=== PATIENT | female | born 1990 | race Caucasian/White ===

== ENCOUNTER 2018-06-16 22:19 | Inpatient (IN) ==
--- NOTE | 2018-06-16 23:24 | ED ---
History of Present Illness Primary Care Physician: NOT REQUIRED Chief Complaint: LOF History of Present Illness: Patient is a 28-year-old at 39/2 weeks gestation presented to OB triage with complaints of loss of fluid. Patient reports that she believes she ruptured her membranes at 4 AM today. However, she went to work and had to wear a pad and adult diaper due to leakage. Denies contractions or vaginal bleeding. Endorses movement. Denies chest pain, shortness of breath, fever, chills, headaches, vision issues, or pain. Denies any complication with this thus far. GBS negative. Of note patient had OB ultrasound on 06/14/18 showing cephalic presentation, weight at 14 percentile and MADHU of 16.9 cm. Patient had contacted PCP Dr. Howell who had informed patient to come in to OB triage to get evaluated for rupture membrane earlier today. However, patient presented to OB triage appx 11 PM. Past medical history: Acid reflux Late care Allergies: None Medications: Protonix 20 mg daily Past surgical history: None Social history: Patient denies cigarette, alcohol or illicit drug use. Family history: None - Inpatient Certification I certify that the inpatient services were ordered in accordance with Medicare regulations governing the order. This includes certification that hospital inpatient services are reasonable and necessary and in the case of services not specified as inpatient-only under 42 CFR 419.22(n), that they are appropriately provided as inpatient services in accordance to with the 2-midnight benchmark under 43 CFR 412.3(e) Review of Systems All other systems reviewed negative except as stated in HPI Medications and Allergies Allergies Allergy/AdvReac Type Severity Reaction Status Date / Time No Known Allergies Allergy Verified 06/16/18 23:27 Home Medications Medication Instructions Recorded Confirmed Type pantoprazole [Protonix] 1 tab PO DAILY 06/16/18 06/16/18 History Exam Vital signs: Vital Signs 06/16/18 22:49 06/16/18 22:54 06/16/18 22:55 Temperature 99.0 F Pulse Rate 85 89 Respiratory Rate 18 Blood Pressure 119/78 Narrative: GENERAL: Well-nourished, well-developed patient. SKIN: Warm and dry. HEAD: Normocephalic and atraumatic. EYES: No scleral icterus. No injection or drainage. ENT: No nasal drainage noted. Mucous membranes pink. Airway patent. NECK: Supple, trachea midline. No JVD. CARDIOVASCULAR: Regular rate and rhythm without murmurs, gallops, or rubs. RESPIRATORY: Breath sounds equal bilaterally. No accessory muscle use. ABDOMEN/GI: Gravid abdomen soft, non-tender, bowel sounds present, no rebound, no guarding Gravid to 39/2 weeks size GENITOURINARY: External Genitalia: intact and normal in appearance Cervix: Anterior Dilatation: 2 Effacement: 70 Station: -2 Presentation: Vertex Membranes: ruptured since 4 am per pt Uterine Contractions: irregular FHT's: Category: 1 Baseline: 140 Reactive: yes Variability: mod Decels: none Acceleration: positive EXTREMITIES: No cyanosis. +2-3 lower extremity edema BACK: Nontender without obvious deformity. No CVA tenderness. NEUROLOGICAL: Awake and alert. Motor and sensory grossly within normal limits. Five out of 5 muscle strength in all muscle groups. Normal speech. Results - Labs CBC & Chem 7: 06/16/18 23:00 Assessment and Plan - Diagnosis (1) 39 weeks gestation of Code(s): Z3A.39 - 39 weeks gestation of Status: Acute (2) SROM (spontaneous rupture of membranes) Status: Acute - Plan Patient is a 28-year-old at 39/2 weeks gestation presented to OB triage with complaints of loss of fluid. SROM since 4 am. -Amnisure test positive -GBS negative -SROM appx 19 hrs at time of admission to L&D -VS WNL -continue to monitor vs -NST reassuring, heart tracing category 1 -Cervical exam: /-2/anterior -Patient with favorable cervix plan to admit to labor and delivery for induction of labor and expected delivery -Patient will be started on pit 07/22/[address] Chavez - Attending Attestation The exam, history, and the medical decision-making described in the above note were completed with the assistance of the resident physician. I reviewed and agree with the findings presented. I attest that I had a [id number] encounter with the patient on the same day, and personally performed and documented my assessment and findings in the medical record. Discharge Plan - Physicians Team Primary Care Provider: NOT REQUIRED, Attending Provider: Ulises Chavez
[2018-06-16] MEDS ORDERED: fentaNYL Citrate Inj 100 MCG/2 ML Ampul IV.PUSH PRN ×2 (23:33)
[2018-06-16] MEDS ORDERED: Sodium Chlor 0.9% Inj 500 ML IV.SIG PRN (23:33)
[2018-06-16] MEDS ORDERED: Sod Chloride 0.9% Inj 1,000 ML IV.CONT PRN (23:33)
[2018-06-16] MEDS ORDERED: Naloxone Inj 0.4 MG/ML Vial IV.PUSH PRN (23:33)
[2018-06-16] MEDS ORDERED: Oxytocin 30 Units/500ml Premix 30 UNITS/500 ML BAG IV.SIG ONE (23:33)
[2018-06-16] MEDS ORDERED: Oxytocin 30 Units/500ml Premix 30 UNITS/500 ML BAG IV.SIG PRN (23:34)
[2018-06-16 23:39] LABS: Baso # (Auto) 0.1 th/mm3 (0.0-0.2); Baso % (Auto) 0.4 % (0.0-2.0); Eos # (Auto) 0.1 th/mm3 (0.0-0.4); Eos % (Auto) 0.6 % (0.0-4.0); Hematocrit 34.2 % (35.0-46.0); Hemoglobin 11.3 gm/dL (11.6-15.3); Lymph # (Auto) 2.3 th/mm3 (1.0-4.8); Lymph % (Auto) 13.8 % (9.0-44.0); Mean Corpuscular HGB Conc 32.9 % (32.0-36.0); Mean Corpuscular Hemoglobin 28.8 pg (27.0-34.0); Mean Corpuscular Volume 87.4 fL (80.0-100.0); Mean Platelet Volume 8.7 fL (7.0-11.0); Mono # (Auto) 1.3 th/mm3 (0.0-0.9); Mono % (Auto) 7.9 % (0.0-8.0); Neut % (Auto) 77.3 % (16.0-70.0); Platelet Count 304 th/mm3 (150-450); Red Blood Count 3.91 mil/mm3 (4.00-5.30); Red Cell Distribution Width 12.6 % (11.6-17.2); White Blood Count 16.8 th/mm3 (4.0-11.0)
[2018-06-16] MEDS ORDERED: Citric Acid/Sodium Citrate Liq 30 ML UDC PO SCH (23:45)
[2018-06-16 23:53] LABS: Amorphous Sediment,Urine Rare /hpf; Bacteria,Urine Few /hpf; Bilirubin,Urine Negative (Negative); Clarity,Urine Hazy (Clear); Color,Urine Yellow (Yellw/Straw); Glucose,Urine (UA) Negative (Negative); Leukocyte Esterase,Urine Large (Negative); Mucus,Urine Few /lpf (Occasional); Nitrite,Urine Negative (Negative); Specific Gravity,Urine 1.006 (1.002-1.035); Squamous Epithelial Cell,Urine 6 /hpf (0-5)
--- NOTE | 2018-06-16 23:53 | P.HPOB ---
Patient Name: Jenni Bocanegra Date of : 89 Patient Status: Inpatient Attending Provider: Ulises Chavez Date: 06/16/18 23:24 Initialization Date: 06/16/18 23:24 History of Present Illness Primary Care Physician: NOT REQUIRED Chief Complaint: LOF History of Present Illness: Patient is a 28-year-old at 39/2 weeks gestation presented to OB triage with complaints of loss of fluid. Patient reports that she believes she ruptured her membranes at 4 AM today. However, she went to work and had to wear a pad and adult diaper due to leakage. Denies contractions or vaginal bleeding. Endorses movement. Denies chest pain, shortness of breath, fever, chills, headaches, vision issues, or pain. Denies any complication with this thus far. GBS negative. Of note patient had OB ultrasound on 06/14/18 showing cephalic presentation, weight at 14 percentile and MADHU of 16.9 cm. Patient had contacted PCP Dr. Howell who had informed patient to come in to OB triage to get evaluated for rupture membrane earlier today. However, patient presented to OB triage appx 11 PM. Past medical history: Acid reflux Late care Allergies: None Medications: Protonix 20 mg daily Past surgical history: None Social history: Patient denies cigarette, alcohol or illicit drug use. Family history: None - Inpatient Certification I certify that the inpatient services were ordered in accordance with Medicare regulations governing the order. This includes certification that hospital inpatient services are reasonable and necessary and in the case of services not specified as inpatient-only under 42 CFR 419.22(n), that they are appropriately provided as inpatient services in accordance to with the 2-midnight benchmark under 43 CFR 412.3(e) Review of Systems All other systems reviewed negative except as stated in HPI Medications and Allergies Allergies Allergy/AdvReac Type Severity Reaction Status Date / Time No Known Allergies Allergy Verified 06/16/18 23:27 Home Medications Medication Instructions Recorded Confirmed Type pantoprazole [Protonix] 1 tab PO DAILY 06/16/18 06/16/18 History Exam Vital signs: Vital Signs 06/16/18 22:49 06/16/18 22:54 06/16/18 22:55 Temperature 99.0 F Pulse Rate 85 89 Respiratory Rate 18 Blood Pressure 119/78 Narrative: GENERAL: Well-nourished, well-developed patient. SKIN: Warm and dry. HEAD: Normocephalic and atraumatic. EYES: No scleral icterus. No injection or drainage. ENT: No nasal drainage noted. Mucous membranes pink. Airway patent. NECK: Supple, trachea midline. No JVD. CARDIOVASCULAR: Regular rate and rhythm without murmurs, gallops, or rubs. RESPIRATORY: Breath sounds equal bilaterally. No accessory muscle use. ABDOMEN/GI: Gravid abdomen soft, non-tender, bowel sounds present, no rebound, no guarding Gravid to 39/2 weeks size GENITOURINARY: External Genitalia: intact and normal in appearance Cervix: Anterior Dilatation: 2 Effacement: 70 Station: -2 Presentation: Vertex Membranes: ruptured since 4 am per pt Uterine Contractions: irregular FHT's: Category: 1 Baseline: 140 Reactive: yes Variability: mod Decels: none Acceleration: positive EXTREMITIES: No cyanosis. +2-3 lower extremity edema BACK: Nontender without obvious deformity. No CVA tenderness. NEUROLOGICAL: Awake and alert. Motor and sensory grossly within normal limits. Five out of 5 muscle strength in all muscle groups. Normal speech. Assessment and Plan - Diagnosis (1) 39 weeks gestation of Code(s): Z3A.39 - 39 weeks gestation of Status: Acute (2) SROM (spontaneous rupture of membranes) Status: Acute - Plan Patient is a 28-year-old at 39/2 weeks gestation presented to OB triage with complaints of loss of fluid. SROM since 4 am. -Amnisure test positive -GBS negative -SROM appx 19 hrs at time of admission to L&D -VS WNL -continue to monitor vs -NST reassuring, heart tracing category 1 -Cervical exam: 270/-2/anterior -Patient with favorable cervix plan to admit to labor and delivery for induction of labor and expected delivery -Patient will be started on pit 07/22/[address] Chavez Discharge Plan - Discharge Disposition Patient [place] [facility] [place] Condition: Stable - Physicians Team Primary Care Provider: NOT REQUIRED, Attending Provider: Ulises Chavez - Rxs /Orders / Referrals /Forms Prescriptions: No Action pantoprazole [Protonix] 20 mg Tablet,Delayed Release (Dr/Ec) 1 tab PO DAILY Referrals: Primary Care Physici,No [Family Provider] - See Instructions NOT REQUIRED, [Primary Care Provider] - See Instructions Attestation Attestation: The exam, history, and the medical decision-making described in the above note were completed with the assistance of the resident physician. I reviewed and agree with the findings presented. I attest that I had a [id number] encounter with the patient on the same day, and personally performed and documented my assessment and findings in the medical record.
[2018-06-17] MEDS ORDERED: fentaNYL 2MCG-Bupiv 0.125% Epi 150 ML EPIDURAL ONE (03:44)
[2018-06-17] MEDS ORDERED: Bupivacaine PF 0.25% Inj 10 ML Vial ONE (03:56)
[2018-06-17] MEDS ORDERED: Oxytocin 30 Units/500ml Premix 30 UNITS/500 ML BAG IV.CONT PRN (04:20)
[2018-06-17] MEDS ORDERED: Bisacodyl 10 MG Supp RECTAL PRN (04:20)
[2018-06-17] MEDS ORDERED: Witch Hazel 50%/Glyderin 12.5% 40 Pad Jar RECTAL PRN (04:20)
[2018-06-17] MEDS ORDERED: Zolpidem Tartrate 5 MG Tablet PO PRN (04:20)
[2018-06-17] MEDS ORDERED: Benzocaine 20% Top Spray 60 ML Can TOPICAL PRN (04:20)
--- NOTE | 2018-06-17 04:23 | P.OBDELI ---
Weeks Gestation: 39 Episiotomy: none Vaginal Delivery: Normal, Spontaneous Presentation: Occiput anterior, Vertex Nuchal Cord: None Delayed Cord Clamping (45 sec): Yes Placenta: Spontaneous delivery, Intact, 3 vessel cord Laceration: Vaginal (vaginal abrasions at 10'o'clock and 2'o'clock, not actively bleeding) Estimated blood loss (mL): 100 Infant: Male Infant Male A Infant Delivery Date: 06/17/18 Infant Delivery Time: 04:13 Weight: 3.25 kg score (1 min): 9 score (5 min): 9 Additional Information: I attended and assisted with this delivery.
[2018-06-17] MEDS: Acetaminophen 325 MG Tablet PO PRN ×2 (13:43→20:11)
[2018-06-17] MEDS: Senna/Docusate Sodium 8.6/50 MG Tablet PO SCH ×2 (19:58→20:11)
[2018-06-18] MEDS: Acetaminophen 325 MG Tablet PO PRN ×3 (05:36→21:47)
--- NOTE | 2018-06-18 08:34 | P.PNOB ---
Subjective Interval history: day #1 AFVSS overnight. Decreased lochia. Denies dysuria. No breast pain. Appetite good. No nausea or vomiting. Ambulating well. Denies calf pain or shortness of breath. Otherwise, she is doing well this morning and has no other complaints. Objective Vital Signs/I&O: Vital Signs 06/17/18 20:00 06/18/18 07:50 Temperature 98.3 F 97.6 F Pulse Rate 70 81 Respiratory Rate 18 18 Blood Pressure 124/74 115/69 Result Diagrams: 06/16/18 23:00 Objective Remarks: GENERAL: Well-nourished, well-developed patient. CARDIOVASCULAR: Regular rate and rhythm without murmurs, gallops, or rubs. RESPIRATORY: Breath sounds equal bilaterally. No accessory muscle use. ABDOMEN/GI: Abdomen soft, non-tender. Fundus: Firm, non-tender at umbilicus. GENITOURINARY: Light to moderate bleeding. EXTREMITIES: No cyanosis or edema, non-tender, without signs of DVT. Medications and IVs: Active Medications Acetaminophen (Tylenol) 650 mg PO Q4H PRN PRN Reason: PAIN SCALE 1 TO 2 Last Admin: 06/18/18 05:36 Dose: 650 mg Al Hydroxide/Mg Hydroxide (Milk Of Magnesia Liq) 30 ml PO Q12H PRN PRN Reason: Mild Constipation Benzocaine (Americaine 20% Top [place]) 1 spray TOPICAL Q4H PRN PRN Reason: For Perineum Discomfort Last Admin: 06/17/18 13:44 Dose: 1 spray Bisacodyl (Dulcolax Supp) 10 mg RECTAL DAILY PRN PRN Reason: SEVERE CONSITIPATION Oxytocin (Pitocin 30 Units/Ns 500 Ml Premix) 30 units in 500 mls @ 100 mls/hr IV.CONT UNSCH PRN PRN Reason: Heavy bleeding Ibuprofen (Motrin) 800 mg PO Q8H PRN PRN Reason: For Cramping Last Admin: 06/18/18 05:37 Dose: 800 mg Lactulose (Lactulose Liq) 30 ml PO DAILY PRN PRN Reason: SEVERE CONSITIPATION Naloxone HCl (Narcan Inj) 0.1 mg IV.PUSH Q2M PRN PRN Reason: for opiate reversal Ondansetron HCl (Zofran Odt) 4 mg PO Q6H PRN PRN Reason: NAUSEA OR VOMITING Senna/Docusate Sodium (Ellie-Colace) [address] [facility] Last Admin: 06/17/18 20:11 Dose: 1 tab Sennosides (Senokot) 17.2 mg PO Q12H PRN PRN Reason: Moderate Constipation Sodium Chloride (Ns Flush) [address] [facility] Last Admin: 06/17/18 23:07 Dose: Not Given Sodium Chloride (Ns Flush) 2 ml IV.FLUSH PRN PRN PRN Reason: FLUSH AFTER USING IV ACCESS Witch Ml[place]/Glycerin (Tucks Pads) 1 applicatio RECTAL QID PRN PRN Reason: HEMORRHOIDS Last Admin: 06/17/18 13:43 Dose: 1 applicatio Zolpidem Tartrate (Ambien) 5 mg PO HS PRN PRN Reason: SLEEP Assessment and Plan - Diagnosis (1) 39 weeks gestation of Code(s): Z3A.39 - 39 weeks gestation of Status: Acute (2) SROM (spontaneous rupture of membranes) Status: Acute - Plan 28y/o female who is PPD#1 s/p vaginal delivery. -Continue routine care. -Motrin PRN pain. -Encouraged OOB. Advised pelvic rest for 6 wks. -Re: ctrl, she would like to discuss with her primary care. -D/c likely tomorrow wdw Dr. Parikh
[2018-06-18] MEDS: Senna/Docusate Sodium 8.6/50 MG Tablet PO SCH ×2 (09:31→21:47)
[2018-06-19] MEDS: Acetaminophen 325 MG Tablet PO PRN ×2 (05:43→12:35)
--- NOTE | 2018-06-19 08:40 | P.PNOB ---
Subjective Post day: 2 Interval history: 22 yo now PPD 2 after with prolonged ROM (24 h). Today she feels well. Ambulating and tolerating diet without issue. Pain moderate and well- controlled. Bleeding moderate and decreasing. Breast feeding without difficulty. No CP/SOB or calf pain. Objective Vital Signs/I&O: Vital Signs 06/18/18 19:30 Temperature 98.3 F Pulse Rate 81 Respiratory Rate 18 Blood Pressure 116/69 Result Diagrams: 06/16/18 23:00 Objective Remarks: GENERAL: Well-nourished, well-developed patient. CARDIOVASCULAR: Regular rate and rhythm without murmurs, gallops, or rubs. RESPIRATORY: Breath sounds equal bilaterally. No accessory muscle use. ABDOMEN/GI: Abdomen soft, non-tender. Fundus: Firm, non-tender approx 2-3 cm below umbilicus. GENITOURINARY: Light to moderate bleeding. EXTREMITIES: No cyanosis or edema, non-tender, without signs of DVT. Medications and IVs: Active Medications Acetaminophen (Tylenol) 650 mg PO Q4H PRN PRN Reason: PAIN SCALE 1 TO 2 Last Admin: 06/19/18 05:43 Dose: 650 mg Al Hydroxide/Mg Hydroxide (Milk Of Magnesia Liq) 30 ml PO Q12H PRN PRN Reason: Mild Constipation Benzocaine (Americaine 20% Top [place]) 1 spray TOPICAL Q4H PRN PRN Reason: For Perineum Discomfort Last Admin: 06/17/18 13:44 Dose: 1 spray Bisacodyl (Dulcolax Supp) 10 mg RECTAL DAILY PRN PRN Reason: SEVERE CONSITIPATION Oxytocin (Pitocin 30 Units/Ns 500 Ml Premix) 30 units in 500 mls @ 100 mls/hr IV.CONT UNSCH PRN PRN Reason: Heavy bleeding Ibuprofen (Motrin) 800 mg PO Q8H PRN PRN Reason: For Cramping Last Admin: 06/19/18 05:43 Dose: 800 mg Lactulose (Lactulose Liq) 30 ml PO DAILY PRN PRN Reason: SEVERE CONSITIPATION Naloxone HCl (Narcan Inj) 0.1 mg IV.PUSH Q2M PRN PRN Reason: for opiate reversal Ondansetron HCl (Zofran Odt) 4 mg PO Q6H PRN PRN Reason: NAUSEA OR VOMITING Senna/Docusate Sodium (Ellie-Colace) 1 tab PO BID [facility] Last Admin: 06/18/18 21:47 Dose: 1 tab Sennosides (Senokot) 17.2 mg PO Q12H PRN PRN Reason: Moderate Constipation Sodium Chloride (Ns Flush) 2 ml IV.FLUSH BID [facility] Last Admin: 06/18/18 21:48 Dose: Not Given Sodium Chloride (Ns Flush) 2 ml IV.FLUSH PRN PRN PRN Reason: FLUSH AFTER USING IV ACCESS Witch [place]/Glycerin (Tucks Pads) 1 applicatio RECTAL QID PRN PRN Reason: HEMORRHOIDS Last Admin: 06/17/18 13:43 Dose: 1 applicatio Zolpidem Tartrate (Ambien) 5 mg PO HS PRN PRN Reason: SLEEP Assessment and Plan - Diagnosis (1) care following vaginal delivery Code(s): Z39.2 - Encounter for routine follow-up Status: Acute - Plan 28y/o female who is PPD#2 s/p vaginal delivery. -Continue routine care. -Motrin PRN pain. -Encouraged OOB. Advised pelvic rest for 6 wks. -Re: ctrl, she will discuss with me after discharge -D/c home today dw Dr. Hall - Attending Attestation The exam, history, and the medical decision-making described in the above note were completed with the assistance of the resident physician. I reviewed and agree with the findings presented. I attest that I had a [id number] encounter with the patient on the same day, and personally performed and documented my assessment and findings in the medical record. Patient is s/p on 06/17, no vaginal or cervical lacerations, BF, no concerns , stable for D/C. -Romi Hall MD
[2018-06-19 09:06] VITALS: BP 121/79; PULSE 66; RESP 14; TEMP 98.2
[2018-06-19] MEDS: Senna/Docusate Sodium 8.6/50 MG Tablet PO SCH (10:35)
== END 2018-06-19 16:54 | disposition home or self-care (01) | DRG 807 ==
LOC: HOBED 22:19 → H2E 23:03 → H1EA 06-17 05:58
PROVIDERS: ADMIT Obstetrics & Gynecology; ATTEND Obstetrics & Gynecology
CPT/HCPCS: 76816; 81001; 83518; 84112; 85025; 86900; 86901; 87086; 99285; J2590; J3010; J7120